=== PATIENT | female | born 1985 | race Two or more races ===

== ENCOUNTER → 2021-04-27 16:27 | Outpatient (CLI) | payer MEDICAID, SELFPAY | PROVIDERS: Visit Provider Nurse Practitioner Obstetrics & Gynecology | DX: Z34.90 Encounter for supervision of normal pregnancy, unspecified, unspecified trimester (principal) | CPT/HCPCS: 36415; 84702 ==

== ENCOUNTER → 2021-05-08 13:43 | Outpatient (CLI) | payer MEDICAID, SELFPAY ==
--- NOTE | 2021-05-08 13:44 | US_ITS ---
PROCEDURE INFORMATION: Exam: US First Trimester, Transabdominal Exam date and time: 05/08/2021 1:44 PM Age: 35 years old Clinical indication: Screening exam; Routine US, uterus; Additional info: For dates TECHNIQUE: Imaging protocol: Real-time transabdominal obstetrical ultrasound of the maternal pelvis and a first trimester , less than 14 weeks 0 days, with image documentation. [place] [facility] [place]14[place] 1:16 PM FINDINGS: Gestation: There is a single viable intrauterine gestation with spontaneous embryonic motion during the course of the examination. Adjacent yolk sac is unremarkable. There is benign chorioamniotic separation which can be normal up to 14 weeks gestation. Embryonic/ heart rate: 158 beats per minute. Extra-embryonic membranes/Placenta: Small crescent shaped hypoechoic region adjacent to the posterior aspect of the gestational sac. This finding would suggest a small subchorionic bleed. Amniotic fluid: Amniotic fluid/chorionic fluid is normal for gestational age. BIOMETRY: Gestational age (AUA): [place]-rump length is 1.42 cm, corresponding to a mean gestational age of 7 weeks 6 days. MATERNAL: Uterus: Unremarkable. Cervix: The cervix is closed. Right ovary/adnexa: The right ovary measures 2.6 x 1.2 x 1.6 cm. Normal arterial inflow and venous outflow. Left ovary/adnexa: The left ovary measures 4.9 x 2.7 x 1.7 cm. Normal arterial inflow and venous outflow. Intraperitoneal space: No intraperitoneal free fluid. IMPRESSION: 1. Single viable intrauterine gestation. Gestational age is 7 weeks 6 days. Active embryonic heart tones are identified at 158 beats per minute. The cervix is closed. 2. There is a small crescent-shaped area of diminished attenuation adjacent to the gestational sac suggesting a subchorionic/implantation bleed. 3. Benign chorioamniotic separation noted within the gestational sac which can be normal up to 14 weeks gestation.
== END ==
PROVIDERS: PCP Nurse Practitioner Family; Visit Provider Nurse Practitioner Obstetrics & Gynecology
DX: Z34.90 Encounter for supervision of normal pregnancy, unspecified, unspecified trimester (principal)
CPT/HCPCS: 76801

== ENCOUNTER → 2021-05-27 13:49 | Outpatient (CLI) | payer MEDICAID, SELFPAY ==
[2021-05-27 14:32] LABS: Basophils % 0.3 % (0.1-2.0); Eosinophils % 0.3 % (0.1-12.0); Hematocrit 35.7 % (37.0-47.0); Hemoglobin 12.1 g/dL (12.2-16.2); Lymphocytes % 26.5 % (10-50); Mean Corpuscular HGB Conc 33.8 g/dL (31.8-35.4); Mean Corpuscular Hemoglobin 31.3 pg (27.0-31.2); Mean Corpuscular Volume 92.5 fl (81-99); Mean Platelet Volume 8.5 fl (7.4-10.4); Monocytes # 0.3 K/mm3 (0.1-1.0); Monocytes % 3.4 % (1.7-9.3); Neutrophils # 5.1 K/mm3 (1.8-7.8); Neutrophils % 69.4 % (37.0-80.0); Platelet Count 279 K/mm3 (142-424); Red Blood Count 3.86 M/mm3 (4.20-5.40); Red Cell Distribution Width 12.6 % (11.5-17.5); White Blood Count 7.3 K/mm3 (4.8-10.8)
[2021-05-29 08:52] LABS: HIV Screen 4th Generation wRfx Non Reactive (Non Reactive); HSV 2 IgG, Type Spec <0.91 index (0.00-0.90); Hepatitis B Surface Antigen Negative (Negative); Hepatitis C Antibody 0.1 s/co ratio (0.0-0.9); Rubella Antibodies, IgG 2.16 index (Immune >0.99)
[2021-05-29 10:32] LABS: Rapid Plasma Reagin Ab Titer Non Reactive (NonRea<1:1)
== END ==
PROVIDERS: Visit Provider Nurse Practitioner Obstetrics & Gynecology
DX: Z34.90 Encounter for supervision of normal pregnancy, unspecified, unspecified trimester (principal)
CPT/HCPCS: 36415; 85025; 86592; 86695; 86703; 86762; 86790; 86850; 87340; 87380; G0432

== ENCOUNTER → 2021-08-05 10:14 | Outpatient (CLI) | payer MEDICAID, SELFPAY ==
--- NOTE | 2021-08-05 10:14 | US_ITS ---
FINAL REPORT CLINICAL HISTORY: 20 weeks gestation FINDINGS: There is a single live intrauterine gestation. Presentation is breech. The cervix is closed and measures 3.4 cm. Placenta is posterior, grade 1. No previous is noted. movement is noted. Heart rate is measured at 153 beats per minute. Three-vessel cord with satisfactory umbilical cord insertion. Four-chamber heart is noted. brain and ventricles are unremarkable. Chest and diaphragm are unremarkable. ABDOMEN: Both kidneys are unremarkable. Stomach is unremarkable. SPINE: No anomalies identified. Both arms and legs noted. AMNIOTIC FLUID: Appropriate amount. MEASUREMENTS: ULTRASOUND AGE: 20 weeks 0 days. GESTATION AGE: 20 weeks 4 days. ESTIMATED WEIGHT: 332 g GROWTH PERCENTILE: 22% BPD: 4.6 cm corresponding with 19 weeks 6 days. OFD: 6 cm corresponding with 20 weeks 3 days. HC: 16.7 cm corresponding with 19 weeks 3 days. AC: 15.1 cm corresponding with 20 weeks 3 days. FL: 3.2 cm corresponding with 20 weeks 1 days. CEREBELLUM: 2.0 cm corresponding with 20 weeks 4 days. HUMERUS: 3.2 cm corresponding with 20 weeks 5 days. HC/AC: 1.11 CI: 76% FL/BPD: 71% FL/AC: 21% IMPRESSION: Single living IUP with an ultrasound age of 20 weeks 0 days. No anomalies noted. Reviewed, Interpreted and Dictated by Omar Win III, MD Transcribed by Lucy Morgan Authenticated by Omar Win III, MD on 08/05/2021 11:51:37 AM [facility]
== END ==
PROVIDERS: PCP Nurse Practitioner Family; Visit Provider Nurse Practitioner Obstetrics & Gynecology
DX: Z34.90 Encounter for supervision of normal pregnancy, unspecified, unspecified trimester (principal); Z3A.20 20 weeks gestation of pregnancy
CPT/HCPCS: 76811

== ENCOUNTER → 2021-09-22 15:33 | Outpatient (CLI) | payer MEDICAID, SELFPAY | PROVIDERS: Visit Provider Nurse Practitioner Obstetrics & Gynecology | DX: O23.40 Unspecified infection of urinary tract in pregnancy, unspecified trimester (principal) | CPT/HCPCS: 87086 ==

== ENCOUNTER → 2021-10-15 09:01 | Outpatient (CLI) | payer MEDICAID, SELFPAY ==
[2021-10-15 10:12] LABS: Glucose,Fasting 97 mg/dl (74-100)
[2021-10-15 10:54] LABS: Glucose 1 Hour 111 mg/dL (74-100)
== END ==
PROVIDERS: PCP Nurse Practitioner Family; Visit Provider Nurse Practitioner Obstetrics & Gynecology
DX: Z34.90 Encounter for supervision of normal pregnancy, unspecified, unspecified trimester (principal)
CPT/HCPCS: 82951

== ENCOUNTER → 2021-11-25 09:29 | Outpatient (CLI) | payer MEDICAID, SELFPAY | PROVIDERS: PCP Nurse Practitioner Family; Visit Provider Nurse Practitioner Obstetrics & Gynecology | DX: Z34.90 Encounter for supervision of normal pregnancy, unspecified, unspecified trimester (principal) | CPT/HCPCS: 86403 ==

== ENCOUNTER → 2021-12-12 12:22 | Outpatient (CLI) | payer MEDICAID, SELFPAY | PROVIDERS: PCP Nurse Practitioner Family; Visit Provider Nurse Practitioner Obstetrics & Gynecology | DX: Z34.90 Encounter for supervision of normal pregnancy, unspecified, unspecified trimester (principal) | CPT/HCPCS: C9803; U0003; U0005 ==

== ENCOUNTER 2021-12-14 04:32 | Inpatient (IN) | payer MEDICAID, SELFPAY ==
[2021-12-14 04:43] VITALS: BMI 28.1
[2021-12-14 05:14] LABS: Microscopic, Urine URINE MICROSCOPIC (MICROSCOPIC)
[2021-12-14 05:14] LABS: Coronavirus 19, PCR Not Detected (NotDetected); Influenza A, PCR Not Detected (NotDetected); Influenza B, PCR Not Detected (NotDetected)
[2021-12-14 05:17] LABS: Basophils # 0.1 K/mm3 (0-0.2); Basophils % 0.7 % (0.1-2.0); Eosinophils # 0.1 K/mm3 (0.0-0.4); Eosinophils % 0.8 % (0.1-12.0); Hematocrit 35.7 % (37.0-47.0); Hemoglobin 11.3 g/dL (12.2-16.2); Lymphocytes # 1.9 K/mm3 (0.7-4.5); Lymphocytes % 20.8 % (10-50); Mean Corpuscular HGB Conc 31.7 g/dL (31.8-35.4); Mean Corpuscular Hemoglobin 29.2 pg (27.0-31.2); Monocytes # 0.4 K/mm3 (0.1-1.0); Monocytes % 4.6 % (1.7-9.3); Neutrophils # 6.6 K/mm3 (1.8-7.8); Neutrophils % 73.1 % (37.0-80.0); Platelet Count 279 K/mm3 (142-424); Red Blood Count 3.88 M/mm3 (4.20-5.40); Red Cell Distribution Width 13.8 % (11.5-17.5)
[2021-12-14 05:44] LABS: Appearance,Urine SL CLOUDY (Clear); Bilirubin,Urine Negative (Negative); Blood, Urine TRACE-I (Negative); Color,Urine YELLOW (Yellow); Glucose,Urine (UA) Negative (Negative); Ketones,Urine Negative (Negative); Leukocyte Esterase,Urine TRACE (Negative); Nitrate,Urine Negative (Negative); PH,Urine 6.5 (5.0-8.5); Protein,Urine Negative (Negative); Specific Gravity, Urine 1.025 (1.005-1.030)
[2021-12-14 05:48] LABS: Mucus,Urine 1+ /lpf; Squamous Epithelial Cell,Urine 20-50 #/hpf (0-5)
[2021-12-14 06:04] LABS: Amphetamine/Metha Screen,Urine Negative ng/ml (<1000)
[2021-12-14 06:05] LABS: Barbiturates Screen,Urine Negative ng/ml (<200)
[2021-12-14 06:06] LABS: Benzodiazepines Screen,Urine Negative ng/ml (<200); Cannabinoid Screen,Urine Negative ng/ml (<50)
[2021-12-14 06:07] LABS: Cocaine Screen,Urine Negative ng/ml (<300); Methadone Screen,Urine Negative ng/ml (<300)
[2021-12-14 06:08] LABS: Opiate Screen,Urine Negative ng/ml (<300)
[2021-12-14 06:09] LABS: Phencyclidine Screen,Urine Negative ng/ml (<25)
--- NOTE | 2021-12-14 07:10 | HMH.PHAINT ---
MEDICATION RECONCILIATION COMPLETED ON PATIENT USING EXTERNAL FILL HISTORY FROM PHARMACY. -ELBA OLIVA, SHERRYD
[2021-12-14 07:28] VITALS: BP 101/55; PULSE 84; RESP 18; TEMP 36.7; O2SAT 100; BMI 28.1
[2021-12-14 07:52] VITALS: BP 104/63; PULSE 86; RESP 18; TEMP 36.6; O2SAT 98
--- NOTE | 2021-12-14 08:37 | HMH.LABNOT ---
Labor Note - Subjective: Date: 12/14/21 Time: 08:37 regular contraction - Objective: NST:: Reactive Contractions:: every 2-3 minutes Cervical Dilation:: 2-3 Effacement:: 50% Station: -2 Membranes: artificially ruptured - Fetus: Monitoring?: Yes monitoring type:: External - Assessment: Labor progressing?: Yes Cephalopelvic disproportion?: No Patient Problems: All Active Problems Tobacco use (Acute) (Acute) - Plan: Anesthesia for epidural?: No Continue to labor down?: Yes Plan for ?: No Continue to monitor?: Yes Start pushing?: No Comment:: I ruptured her membranes and there was minimal clear fluid. We will expect a vaginal delivery.
--- NOTE | 2021-12-14 10:21 | HMH.LABNOT ---
Labor Note - Subjective: Date: 12/14/21 Time: 10:21 regular contraction - Objective: NST:: Reactive Contractions:: every 2-3 minutes Cervical Dilation:: 4 Effacement:: 75% Station: -2 Membranes: artificially ruptured - Fetus: Monitoring?: Yes monitoring type:: External - Assessment: Labor progressing?: Yes Cephalopelvic disproportion?: No Patient Problems: All Active Problems Tobacco use (Acute) (Acute) - Plan: Anesthesia for epidural?: No Continue to labor down?: Yes Plan for ?: No Continue to monitor?: Yes Start pushing?: No
--- NOTE | 2021-12-14 12:13 | HMH.ANESCL ---
[facility] Anesthesia Checklist - Patient Identification Patient Identification: Arm Band - Structural Data Admitted From: Inpatient Planned Operative Procedure/s: Labor Epidural Consent for Planned Operative Procedure(s) Verified: Yes Verified Documents: Surgical Consent, History and Physical - NPO Status Verified Time NPO: 00:00 - Additional verifications Anesthesia Reactions: No - Airway Assessment C-Spine Mobility Assessed: Yes TMJ Mobility Assessed: Yes Dentition: Good Dentition - Neurological Assessment Level of Consciousness: Awake, Alert - Anesthesia Plan Anesthesia Risk discussed: Yes Anesthesia Plan: Verified ASA Class: II Anesthesia Type: Epidural [facility] History I have reviewed the patient's past medical history: Yes *Have you ever received a pneumonia vaccine?: No *Have you received a flu vaccine this season?: No Other Medical History: Reports: Anemia Anesthesia experience/problems:: nac Other Surgeries: Yes: Other. No: Amputation: No Fractures: No - *Social History Smoking Status: Current every day smoker Tobacco Type: cigarettes Alcohol Intake: current Alcohol Intake Frequency:: holidays/special occasions only Substance Use Type: denies use *Occupational Status:: employed *Travel in the last 8 weeks: None Family Hx:: No significant family history Para: 2
--- NOTE | 2021-12-14 13:57 | HMH.LABNOT ---
Labor Note - Subjective: Date: 12/14/21 Time: 13:57 regular contraction - Objective: NST:: Reactive Contractions:: every 2-3 minutes Cervical Dilation:: 4-5 Effacement:: 75% Station: -2 Membranes: artificially ruptured - Fetus: Monitoring?: Yes monitoring type:: External - Assessment: Labor progressing?: Yes Cephalopelvic disproportion?: No Patient Problems: All Active Problems Tobacco use (Acute) (Acute) - Plan: Anesthesia for epidural?: Yes Continue to labor down?: Yes Plan for ?: No Continue to monitor?: Yes Start pushing?: No
--- NOTE | 2021-12-14 16:03 | HMH.LABNOT ---
Labor Note - Subjective: Date: 12/14/21 Time: 16:03 regular contraction - Objective: NST:: Reactive Contractions:: every 2-3 minutes Cervical Dilation:: 9-10 Effacement:: 100% Station: +1 Membranes: artificially ruptured - Fetus: Monitoring?: Yes monitoring type:: External - Assessment: Labor progressing?: Yes Cephalopelvic disproportion?: No Patient Problems: All Active Problems Tobacco use (Acute) (Acute) - Plan: Anesthesia for epidural?: Yes Continue to labor down?: Yes Plan for ?: No Continue to monitor?: Yes Start pushing?: Yes Comment:: We will go ahead and start pushing.
--- NOTE | 2021-12-14 16:59 | HMH.DN ---
- Delivery Note Delivery Date:: 12/14/21 Delivery Time:: 16:13 Anesthesia Type: Epidural Was labor medically induced?: Yes Induction method: per pitocin protocol Gestational age (weeks): 39 delivered prior to 39 weeks?: No at 1 minute: 8 at 5 minutes: 9 Delivery Procedure:: She is a 36-year-old 4 para 2 aborta 1 who was 39 weeks gestational age. She was feeling lots of pressure and wanted to deliver at term. She was started on IV oxytocin had her membranes ruptured. Under labor epidural she progressed to full dilation and delivered spontaneously a liveborn female child at 4:13 PM in the afternoon of December 14, 2021. On deliver the head the anterior shoulder easily delivered followed by the rest the infant's body atraumatically. It was noted that there was a tight cord around the left shoulder. It was not a nuchal cord. The baby was vigorous and cried spontaneously. We allowed the cord to continue to pulsate for approximately 1 minute. The cord was then doubly clamped and cut and the was placed on the mother's abdomen for further care. The nurses assigned Apgars of 8 at 1 minute and 9 at 5 minutes. She received IV oxytocin and using gentle traction on the cord and countertraction on the fundus I was able to easily deliver the placenta intact 2 minutes after the delivery. He had a normal three-vessel cord. There were no perineal or vaginal lacerations. She has O+ blood, she is rubella immune and was group B streptococcus negative. She plans to breast-feed. Estimated blood loss was approximately 100 cc. Placental Delivery Description: Spontaneous
--- NOTE | 2021-12-14 17:10 | HMH.HP ---
*Admission Date: 12/14/21 *Chief complaint: Term , previous vaginal delivery *History of present illness: She is a 36-year-old 4 para 2 aborta 1 who is 39+ weeks gestational age. She has been having pressure and requested induction of labor at term. [facility] History I have reviewed the patient's past medical history: Yes *Have you ever received a pneumonia vaccine?: No *Have you received a flu vaccine this season?: No Other Medical History: Reports: Anemia Anesthesia experience/problems:: nac Other Surgeries: Yes: Other. No: Amputation: No Fractures: No - *Social History Smoking Status: Current every day smoker Tobacco Type: cigarettes Alcohol Intake: current Alcohol Intake Frequency:: holidays/special occasions only Substance Use Type: denies use *Occupational Status:: employed *Travel in the last 8 weeks: None Family Hx:: No significant family history Para: 2 Review of Systems - Review of Systems Review of systems:: pertinent systems reviewed and negative unless documented below Meds Home Medications Medication Instructions Recorded Confirmed Type [id number] 18 mg-FA 400 1 tab PO DAILY 02/05/21 12/14/21 History mcg-calcium 500 mg-vit K 50 mcg tablet Ferrous Sulfate 325 mg PO DAILY 12/14/21 12/14/21 History Hydrocortisone 1 applic TP TIDP PRN 12/14/21 12/14/21 History Loratadine [Claritin] 10 mg PO DAILY 12/14/21 12/14/21 History Allergies Allergy/AdvReac Type Severity Reaction Status Date / Time No Known Allergies Allergy Verified 12/09/21 09:11 Exam Vital signs and Labs for Last 24 Hours: Temp Pulse Resp BP Pulse Ox 97.9 F 86 18 104/63 L 98 12/14/21 07:52 12/14/21 07:52 12/14/21 07:52 12/14/21 07:52 12/14/21 07:52 Laboratory Results - last 24 hr 12/14/21 04:45: Urine Color Yellow, Urine Appearance Sl cloudy, Urine pH 6.5, Ur Specific [place] 1.025, Urine Protein Negative, Urine Glucose (UA) Negative, Urine Ketones Negative, Urine Blood Trace-i, Urine Nitrate Negative, Urine Bilirubin Negative, Urine Urobilinogen 1.0, Ur Leukocyte Esterase Trace, Urine RBC 3-5, Urine WBC 3-5, Ur Squamous Epith Cells 20-50, Urine Mucus 1+ 12/14/21 04:45: Urine Opiates Screen Negative, Urine Methadone Screen Negative, Ur Barbituates Screen Negative, Ur Phencyclidine Scrn Negative, Ur Amphetamines Screen Negative, U Benzodiazepines Scrn Negative, Urine Cocaine Screen Negative, U Marijuana (THC) Screen Negative 12/14/21 05:05: WBC 9.0, RBC 3.88 L, Hgb 11.3 L, Hct 35.7 L, MCV 92.0, MCH 29.2, MCHC 31.7 L, RDW 13.8, Plt Count 279, MPV 9.0, Neut % (Auto) 73.1, Lymph % (Auto) 20.8, [place] % (Auto) 4.6, Eos % (Auto) 0.8, Baso % (Auto) 0.7, Neut # (Auto) 6.6, Lymph # (Auto) 1.9, [place] # (Auto) 0.4, Eos # (Auto) 0.1, Baso # (Auto) 0.1 12/14/21 05:05: SARS-CoV-2 (PCR) Not detected, Influenza A Untype (PCR) Not detected, Influenza Type B (PCR) Not detected 12/14/21 05:05: Blood Type O Positive, Antibody Screen Negative I & O for Last 24 hours: Intake & Output 12/12/21 12/13/21 12/14/21 12/15/21 11:59 11:59 11:59 11:59 Weight 159 lb - Constitutional no acute distress - *Routine HEENT Exam Head: Present: normocephalic Eye: Present: EOMI, PERRL ENT: Present: mucous membranes moist - *Routine Neck Exam Present: supple, full ROM - *Routine Respiratory Exam Absent: accessory muscle use (good air entry bilaterally), wheezes, crackles - *Routine Cardiovascular Exam Present: RRR. Absent: murmur - *Routine Abdominal Exam Present: soft, normoactive bowel sounds. Absent: tenderness, rebound, guarding, mass - *Routine Rectal Exam Rectal:: deferred - *Routine Genitalia Exam Genitalia:: normal female - *Routine Extremities Exam Present: full ROM. Absent: cyanosis, edema, calf tenderness - *Routine Skin Exam Present: intact (good color) - *Routine Neurological Exam Present: alert, oriented X3 - Routine Psychiatric Exam Present: normal affect - Deta
[2021-12-15 07:50] LABS: Hematocrit 33.5 % (37.0-47.0); Hemoglobin 10.9 g/dL (12.2-16.2)
--- NOTE | 2021-12-15 08:38 | P.DS_ITS ---
General - General Admission date:: 12/14/21 Discharge date: 12/15/21 HPI HPI: She is a 36-year-old 4 para 2 aborta 1 who is 39+ weeks gestational age. She has been having pressure and requested induction of labor at term. Hospital Course Hospital Course: She was started on IV oxytocin and had her membranes ruptured. Under labor epidural progressed to full dilation and delivered spontaneously a liveborn female child at 4:13 PM in the afternoon of December 14, 2021. The baby weighed 7 pounds 0 ounces. She had Apgars of 8 at 1 minute and 9 at 5 minutes. She has done well and has remained afebrile throughout her hospitalization. She is eating and drinking and ambulating. She is breast- feeding. Her lochia is normal. She has O+ blood, she is rubella immune and was group B streptococcus negative. She is discharged home to follow-up with me in approximately 2 weeks time. She was given the usual instructions with respect to limiting her activity, driving and sexual activity. Her condition on discharge is stable and improved. Objective Vital signs: Temp Pulse Resp BP Pulse Ox 97.9 F 86 18 104/63 L 98 12/14/21 07:52 12/14/21 07:52 12/14/21 07:52 12/14/21 07:52 12/14/21 07:52 no acute distress - *Routine HEENT Exam Head: Present: normocephalic Eye: Present: EOMI, PERRL ENT: Present: mucous membranes moist Results Labs on day of discharge: Labs from last 24 hours 12/15/21 07:13 Hgb 10.9 L Hct 33.5 L DS: Diagnosis - Discharge Diagnosis (1) Normal delivery at term Status: Acute Discharge Plan - Patient Discharge Instructions ACTIVITY: No heavy lifting DIET: continue same diet - Follow up Plan Disposition: Home, Self-Care Condition at discharge:: Stable Home Medications: Home Medications Medication Instructions Recorded Confirmed Type [id number] 18 mg-FA 400 1 tab PO DAILY 02/05/21 12/14/21 History mcg-calcium 500 mg-vit K 50 mcg tablet Ferrous Sulfate 325 mg PO DAILY 12/14/21 12/14/21 History Hydrocortisone 1 applic TP TIDP PRN 12/14/21 12/14/21 History Loratadine [Claritin] 10 mg PO DAILY 12/14/21 12/14/21 History Prescriptions/Medication Reconciliation: Continued [id number] 18 mg-FA 400 mcg-calcium 500 mg-vit K 50 mcg tablet 1 tab PO DAILY Loratadine [Claritin] 10 mg PO DAILY Ferrous Sulfate 325 mg PO DAILY Hydrocortisone 1 applic TP TIDP PRN PRN Reason: itching - Problem Reconciliation Problems Reviewed?: Yes
== END 2021-12-15 20:00 | disposition home or self-care (01) | DRG 807 ==
PROVIDERS: Admitting Provider Nurse Practitioner Obstetrics & Gynecology; PCP Nurse Practitioner Family; Visit Provider Nurse Practitioner Obstetrics & Gynecology
DX: O99.334 Smoking (tobacco) complicating childbirth (principal); Z37.0 Single live birth; F17.210 Nicotine dependence, cigarettes, uncomplicated; Z3A.39 39 weeks gestation of pregnancy; O69.89X0 Labor and delivery complicated by other cord complications, not applicable or unspecified
CPT/HCPCS: 59409; 36415; 59025; 80305; 81001; 85014; 85018; 85025; 86850; 94761; C9803; G0283; U0003; U0005